=== PATIENT | male | born 1950 | race African-American/Black ===

== ENCOUNTER 2020-09-09 02:29 | Inpatient (IN) | payer OTHER ==
[~2020-09-09] VITALS: Ht 188 cm; Wt 108.0 kg
[2020-09-09 04:41] LABS: Basophils # (auto) 0 10 ^3/uL (0-0.2); Basophils % (auto) 0.3 % (0.0-2.0); Eosinophils # (auto) 0.1 10 ^3/uL (0-0.8); Eosinophils % (auto) 1.3 % (0.0-7.0); Hematocrit 31.3 % (41.0-53.0); Hemoglobin 10.4 g/dL (13.5-17.5); Lymphocytes # (auto) 0.8 10 ^3/uL (0.4-5.4); Lymphocytes % (auto) 8.6 % (10.0-50.0); Mean Corpuscular Hemoglobin 27.8 pg (28.0-32.0); Mean Corpuscular Hgb Conc. 33.3 g/dL (32.0-36.0); Mean Corpuscular Volume 83.7 fL (80.0-100.0); Monocytes # (auto) 0.7 10 ^3/uL (0-1.3); Monocytes % (auto) 7.9 % (0.0-12.0); Neutrophils # (auto) 7.4 10 ^3/uL (1.6-8.6); Neutrophils % (auto) 81.9 % (37.0-80.0); Platelet Count (auto) 154 10^3/uL (140-450); Red Blood Cells 3.74 10^6/uL (4.5-5.90); Red Cell Distribution Width 16.9 % (11.8-14.3)
[2020-09-09 04:49] LABS: INR 1.04 (0.9-1.15); Partial Thromboplastin Time 24.1 sec (23.0-31.2)
[2020-09-09 05:01] LABS: Potassium 3.5 mmol/L (3.5-5.1)
[2020-09-09 05:07] LABS: Albumin 2.8 g/dL (3.4-5.0); BUN/Creatinine Ratio 15.8; Bilirubin, Total 0.3 mg/dL (0.2-1.0); Total Protein 5.5 g/dL (6.4-8.2)
[2020-09-09] MEDS ORDERED: PANTOPRAZOLE 40 MG/10 ML VIAL INJ IV ONE (06:45)
[2020-09-09] MEDS ORDERED: SODIUM CHLORIDE 0.9% 500 ML IVB ONE (06:45)
[2020-09-09] MEDS ORDERED: NITROGLYCERIN 0.4 MG SL TAB SL PRN (11:00)
[2020-09-09] MEDS ORDERED: MORPHINE SULF INJ 2 MG/ML SYRINGE 1ML IV PRN (11:00)
[2020-09-09] MEDS: SODIUM CHLORIDE 0.9% 1,000 ML IV SCH ×2 (11:27→17:45)
[2020-09-09 13:17] LABS: Hemoglobin 9.8 g/dL (13.5-17.5)
[2020-09-09 19:26] LABS: Hematocrit 24.1 % (41.0-53.0); Hemoglobin 8.2 g/dL (13.5-17.5)
[2020-09-09 23:32] LABS: Hematocrit 22.7 % (41.0-53.0); Hemoglobin 7.7 g/dL (13.5-17.5)
[2020-09-10] VITALS (15 sets, daily range): BP systolic 98–130; BP diastolic 55–79
[2020-09-10] MEDS: SODIUM CHLORIDE 0.9% 1,000 ML IV SCH ×3 (03:00→18:09)
[2020-09-10 03:28] LABS: Basophils # (auto) 0 10 ^3/uL (0-0.2); Eosinophils # (auto) 0.1 10 ^3/uL (0-0.8); Hematocrit 21.5 % (41.0-53.0); Hemoglobin 7.4 g/dL (13.5-17.5); Mean Corpuscular Hgb Conc. 34.6 g/dL (32.0-36.0); Monocytes # (auto) 0.6 10 ^3/uL (0-1.3); Neutrophils # (auto) 4.5 10 ^3/uL (1.6-8.6)
[2020-09-10 03:30] LABS: Basophils % (auto) 0.1 % (0.0-2.0); Eosinophils % (auto) 2.1 % (0.0-7.0); Lymphocytes % (auto) 15.3 % (10.0-50.0); Mean Corpuscular Hemoglobin 28.8 pg (28.0-32.0); Mean Corpuscular Volume 83.2 fL (80.0-100.0); Monocytes % (auto) 10.3 % (0.0-12.0); Neutrophils % (auto) 72.2 % (37.0-80.0); Platelet Count (auto) 125 10^3/uL (140-450); Red Blood Cells 2.58 10^6/uL (4.5-5.90); Red Cell Distribution Width 16.7 % (11.8-14.3); White Blood Cell 6.3 10^3/uL (4.4-10.8)
[2020-09-10] MEDS: PANTOPRAZOLE 40 MG TAB PO SCH (10:00)
[2020-09-10 10:55] LABS: Basophils # (auto) 0 10 ^3/uL (0-0.2); Basophils % (auto) 0.4 % (0.0-2.0); Eosinophils # (auto) 0.3 10 ^3/uL (0-0.8); Hemoglobin 7.5 g/dL (13.5-17.5); Lymphocytes # (auto) 1.1 10 ^3/uL (0.4-5.4); Monocytes # (auto) 0.5 10 ^3/uL (0-1.3); Red Cell Distribution Width 16.7 % (11.8-14.3)
[2020-09-10 10:56] LABS: Eosinophils % (auto) 5.9 % (0.0-7.0); Hematocrit 21.6 % (41.0-53.0); Lymphocytes % (auto) 20.9 % (10.0-50.0); Mean Corpuscular Hemoglobin 29.2 pg (28.0-32.0); Mean Corpuscular Hgb Conc. 34.6 g/dL (32.0-36.0); Mean Corpuscular Volume 84.3 fL (80.0-100.0); Monocytes % (auto) 10.6 % (0.0-12.0); Neutrophils # (auto) 3.2 10 ^3/uL (1.6-8.6); Neutrophils % (auto) 62.2 % (37.0-80.0); Platelet Count (auto) 122 10^3/uL (140-450); Red Blood Cells 2.57 10^6/uL (4.5-5.90); White Blood Cell 5.1 10^3/uL (4.4-10.8)
[2020-09-10] MEDS ORDERED: OCTREOTIDE ACETATE 100 MCG in SODIUM CHL 0.9% 50 ML IV ONE (12:45)
[2020-09-10] MEDS: PIPERACILLIN-TAZOB 3.375GM 100 ML IV SCH ×2 (13:56→18:08)
[2020-09-10] MEDS: metroNIDAZOLE 500MG/100ML 100 ML IV SCH ×2 (13:56→22:10)
[2020-09-10] MEDS: OCTREOTIDE ACETATE 500 MCG in SODIUM CHL 0.9% 99 ML IV SCH ×2 (14:49→23:15)
[2020-09-10] MEDS: Ensure HIGH Protein Chocolate 8oz Bottle PO SCH (18:08)
[2020-09-10] MEDS ORDERED: GOLYTELY 4L KIT PO ONE (18:15)
[2020-09-10 20:47] LABS: Hemoglobin 8.3 g/dL (13.5-17.5)
[2020-09-11] VITALS (10 sets, daily range): BP systolic 115–149; BP diastolic 69–93
[2020-09-11] MEDS: SODIUM CHLORIDE 0.9% 1,000 ML IV SCH ×3 (04:00→18:05)
[2020-09-11] MEDS: metroNIDAZOLE 500MG/100ML 100 ML IV SCH ×3 (04:52→22:05)
[2020-09-11 05:17] LABS: Urine Bacteria FEW /hpf (None Seen); Urine Blood Negative /uL (Negative); Urine Mucus FEW (None Seen); Urine Specific Gravity 1.039 (1.001-1.035); Urine WBC 1 /hpf (0 - 3)
[2020-09-11] MEDS ORDERED: MAGNESIUM CITRATE SOLUTION 300 ML BTL PO ONE (06:00)
[2020-09-11] MEDS ORDERED: GOLYTELY 4L KIT PO ONE (06:00)
[2020-09-11] MEDS: PIPERACILLIN-TAZOB 3.375GM 100 ML IV SCH ×4 (06:19→17:12)
[2020-09-11] MEDS: Ensure HIGH Protein Chocolate 8oz Bottle PO SCH ×3 (08:00→17:12)
[2020-09-11 08:27] LABS: Basophils # (auto) 0 10 ^3/uL (0-0.2); Eosinophils # (auto) 0.4 10 ^3/uL (0-0.8); Hematocrit 20.1 % (41.0-53.0); Lymphocytes # (auto) 1.5 10 ^3/uL (0.4-5.4); Mean Corpuscular Hemoglobin 30.3 pg (28.0-32.0); Platelet Count (auto) 120 10^3/uL (140-450); Red Blood Cells 2.32 10^6/uL (4.5-5.90); Red Cell Distribution Width 16.2 % (11.8-14.3); White Blood Cell 5.6 10^3/uL (4.4-10.8)
[2020-09-11 08:28] LABS: Basophils % (auto) 0.7 % (0.0-2.0); Eosinophils % (auto) 7.2 % (0.0-7.0); Hemoglobin 7.1 g/dL (13.5-17.5); Lymphocytes % (auto) 26.9 % (10.0-50.0); Mean Corpuscular Hgb Conc. 35.1 g/dL (32.0-36.0); Mean Corpuscular Volume 86.6 fL (80.0-100.0); Monocytes # (auto) 0.7 10 ^3/uL (0-1.3); Monocytes % (auto) 12.7 % (0.0-12.0); Neutrophils % (auto) 52.5 % (37.0-80.0); Nucleated Red Blood Cells % 0.2 %
[2020-09-11 08:49] LABS: Potassium 3.3 mmol/L (3.5-5.1)
[2020-09-11 09:12] LABS: Albumin 2.5 g/dL (3.4-5.0); BUN/Creatinine Ratio 15.1; Bilirubin, Total 0.5 mg/dL (0.2-1.0); Calcium 7.8 mg/dL (8.5-10.1)
[2020-09-11] MEDS ORDERED: ONDANSETRON HCL 4 MG/2 ML VIAL IV PRN (09:15)
[2020-09-11] MEDS: OCTREOTIDE ACETATE 500 MCG in SODIUM CHL 0.9% 99 ML IV SCH (09:17)
[2020-09-11] MEDS: PANTOPRAZOLE 40 MG TAB PO SCH (09:18)
[2020-09-11] MEDS ORDERED: POTASSIUM CHLORIDE 8 MEQ TAB PO ONE (10:45)
[2020-09-11] MEDS ORDERED: SODIUM CHLORIDE LOCK 10 ML ONE (12:38)
[2020-09-11] MEDS ORDERED: fentaNYL CITRATE 100 MCG/2 ML VL ONE ×2 (12:39→14:03)
[2020-09-11] MEDS ORDERED: diphenhdrAMINE HCL 50 MG/1 ML VL ONE (12:39)
[2020-09-11] MEDS ORDERED: MIDAZOLAM HCL 5 MG/ML-1ML VIAL ONE (12:39)
[2020-09-11] MEDS ORDERED: LIDOCAINE VISCOUS 2% 15ML UD ONE (13:27)
[2020-09-11] MEDS ORDERED: MIDAZOLAM HCL 1MG/1ML-2 ML VIAL ONE (14:03)
[2020-09-11] MEDS ORDERED: PROPOFOL 10 MG/ML 20 ML IV ONE (14:08)
[2020-09-11] MEDS ORDERED: SIMETHICONE 40 MG/0.6 ML ORAL DROP ONE (14:25)
[2020-09-11 19:31] LABS: Hemoglobin 6.8 g/dL (13.5-17.5)
[2020-09-11 22:53] LABS: Hematocrit 18.9 % (41.0-53.0)
[2020-09-11 23:15] LABS: Hemoglobin 6.4 g/dL (13.5-17.5)
[2020-09-12] VITALS (7 sets, daily range): BP systolic 143–153; BP diastolic 73–93
[2020-09-12] MEDS: OCTREOTIDE ACETATE 500 MCG in SODIUM CHL 0.9% 99 ML IV SCH ×2 (00:40→05:15)
[2020-09-12] MEDS: SODIUM CHLORIDE 0.9% 1,000 ML IV SCH ×3 (03:00→19:00)
[2020-09-12] MEDS: metroNIDAZOLE 500MG/100ML 100 ML IV SCH ×3 (05:54→21:47)
[2020-09-12] MEDS: PIPERACILLIN-TAZOB 3.375GM 100 ML IV SCH ×4 (06:13→18:43)
[2020-09-12 06:42] LABS: Basophils # (auto) 0 10 ^3/uL (0-0.2); Eosinophils # (auto) 0.5 10 ^3/uL (0-0.8); Hemoglobin 7.6 g/dL (13.5-17.5); Lymphocytes # (auto) 0.9 10 ^3/uL (0.4-5.4); Monocytes # (auto) 0.7 10 ^3/uL (0-1.3)
[2020-09-12 06:44] LABS: Basophils % (auto) 0.5 % (0.0-2.0); Eosinophils % (auto) 8.3 % (0.0-7.0); Hematocrit 21.5 % (41.0-53.0); Lymphocytes % (auto) 14.8 % (10.0-50.0); Mean Corpuscular Hemoglobin 30.9 pg (28.0-32.0); Mean Corpuscular Hgb Conc. 35.3 g/dL (32.0-36.0); Mean Corpuscular Volume 87.4 fL (80.0-100.0); Monocytes % (auto) 11.2 % (0.0-12.0); Neutrophils # (auto) 3.8 10 ^3/uL (1.6-8.6); Neutrophils % (auto) 65.2 % (37.0-80.0); Platelet Count (auto) 112 10^3/uL (140-450); Red Blood Cells 2.46 10^6/uL (4.5-5.90); Red Cell Distribution Width 15.8 % (11.8-14.3); White Blood Cell 5.9 10^3/uL (4.4-10.8)
[2020-09-12 07:05] LABS: Calcium 7.6 mg/dL (8.5-10.1); Potassium 3.5 mmol/L (3.5-5.1)
[2020-09-12 07:08] LABS: BUN/Creatinine Ratio 13.5
[2020-09-12] MEDS: Ensure HIGH Protein Chocolate 8oz Bottle PO SCH ×3 (08:00→18:00)
[2020-09-12] MEDS: PANTOPRAZOLE 40 MG TAB PO SCH (09:45)
[2020-09-12 14:12] LABS: Hematocrit 21.8 % (41.0-53.0); Hemoglobin 7.6 g/dL (13.5-17.5)
[2020-09-12 18:25] LABS: Hematocrit 22.4 % (41.0-53.0); Hemoglobin 7.8 g/dL (13.5-17.5)
[2020-09-12] MEDS: MORPHINE SULF INJ 2 MG/ML SYRINGE 1ML IV PRN (21:59)
[2020-09-12 23:24] LABS: Hematocrit 23.1 % (41.0-53.0)
[2020-09-13] VITALS: BP 141/74
[2020-09-13] MEDS: OCTREOTIDE ACETATE 500 MCG in SODIUM CHL 0.9% 99 ML IV SCH ×2 (00:48→11:58)
[2020-09-13] MEDS: SODIUM CHLORIDE 0.9% 1,000 ML IV SCH ×2 (02:54→10:46)
[2020-09-13] MEDS: MORPHINE SULF INJ 2 MG/ML SYRINGE 1ML IV PRN (03:48)
[2020-09-13] MEDS: metroNIDAZOLE 500MG/100ML 100 ML IV SCH ×2 (05:33→14:00)
[2020-09-13 05:41] LABS: Basophils # (auto) 0 10 ^3/uL (0-0.2); Hemoglobin 8.2 g/dL (13.5-17.5); Mean Corpuscular Hgb Conc. 34.5 g/dL (32.0-36.0); Monocytes # (auto) 0.7 10 ^3/uL (0-1.3); Nucleated Red Blood Cells % 0.2 %; Red Cell Distribution Width 15.7 % (11.8-14.3); White Blood Cell 6.5 10^3/uL (4.4-10.8)
[2020-09-13 05:44] LABS: Basophils % (auto) 0.6 % (0.0-2.0); Eosinophils # (auto) 0.4 10 ^3/uL (0-0.8); Eosinophils % (auto) 6.1 % (0.0-7.0); Hematocrit 23.6 % (41.0-53.0); Lymphocytes % (auto) 15.3 % (10.0-50.0); Mean Corpuscular Hemoglobin 30.1 pg (28.0-32.0); Mean Corpuscular Volume 87.4 fL (80.0-100.0); Monocytes % (auto) 10.3 % (0.0-12.0); Neutrophils # (auto) 4.4 10 ^3/uL (1.6-8.6); Neutrophils % (auto) 67.7 % (37.0-80.0); Platelet Count (auto) 155 10^3/uL (140-450); Red Blood Cells 2.71 10^6/uL (4.5-5.90)
[2020-09-13 05:58] LABS: BUN/Creatinine Ratio 4.7; Calcium 8.4 mg/dL (8.5-10.1); Potassium 3.1 mmol/L (3.5-5.1)
[2020-09-13] MEDS: PIPERACILLIN-TAZOB 3.375GM 100 ML IV SCH ×3 (06:59→12:00)
[2020-09-13] MEDS: Ensure HIGH Protein Chocolate 8oz Bottle PO SCH ×2 (08:00→11:59)
[2020-09-13] MEDS: PANTOPRAZOLE 40 MG TAB PO SCH (10:20)
[2020-09-13] MEDS ORDERED: POTASSIUM EFFERVESENT TAB 25 MEQ PO ONE (11:15)
[2020-09-13] MEDS ORDERED: SIMETHICONE 80 MG CHEWABLE TABLET PO SCH (12:00)
== END 2020-09-13 15:42 | disposition home or self-care (01) | DRG 378 ==
LOC: EDBD 02:29 → ER 02:34 → TELE 02:35 → TELE-CENTR 09-10 15:44
PROVIDERS: ADMIT Internal Medicine; ATTEND Internal Medicine
PROC: 30233K1 Transfusion of Nonautologous Frozen Plasma into Peripheral Vein, Percutaneous Approach (ICD-10-PCS; principal; 2020-09-10)
PROC: 30233N1 Transfusion of Nonautologous Red Blood Cells into Peripheral Vein, Percutaneous Approach (ICD-10-PCS; 2020-09-10)
PROC: 0DB68ZX Excision of Stomach, Via Natural or Artificial Opening Endoscopic, Diagnostic (ICD-10-PCS; 2020-09-11)
PROC: 0DBN8ZZ Excision of Sigmoid Colon, Via Natural or Artificial Opening Endoscopic (ICD-10-PCS; 2020-09-11)
PROC: 0DBP8ZX Excision of Rectum, Via Natural or Artificial Opening Endoscopic, Diagnostic (ICD-10-PCS; 2020-09-11)
PROC: 0DB88ZX Excision of Small Intestine, Via Natural or Artificial Opening Endoscopic, Diagnostic (ICD-10-PCS; 2020-09-11)
DX: K57.33 Diverticulitis of large intestine without perforation or abscess with bleeding (principal); E44.0 Moderate protein-calorie malnutrition; K57.31 Diverticulosis of large intestine without perforation or abscess with bleeding; Z20.828 Contact with and (suspected) exposure to other viral communicable diseases; I10 Essential (primary) hypertension; E78.5 Hyperlipidemia, unspecified; K44.9 Diaphragmatic hernia without obstruction or gangrene; K64.8 Other hemorrhoids; D64.9 Anemia, unspecified; J44.9 Chronic obstructive pulmonary disease, unspecified; I72.3 Aneurysm of iliac artery; N40.0 Benign prostatic hyperplasia without lower urinary tract symptoms; Z68.30 Body mass index [BMI] 30.0-30.9, adult; Z85.038 Personal history of other malignant neoplasm of large intestine; Z86.73 Personal history of transient ischemic attack (TIA), and cerebral infarction without residual deficits; Z80.9 Family history of malignant neoplasm, unspecified; Z82.49 Family history of ischemic heart disease and other diseases of the circulatory system; Z85.46 Personal history of malignant neoplasm of prostate; Z79.899 Other long term (current) drug therapy; K62.89 Other specified diseases of anus and rectum
CPT/HCPCS: 36415; 43239; 45380; 45385; 71045; 74176; 80048; 80053; 81001; 82378; 84443; 85014; 85018; 85025; 85045; 85610; 85652; 85730; 86141; 86850; 86900; 86901; 86920; 87081; 87426; 93005; C9113; G0378; J2250; J2405; J2543; J2704; J3490